=== PATIENT | female | born 1990 | race Caucasian/White ===

== ENCOUNTER 2016-11-04 14:34 | Emergency (ER) | payer OTHER ==
[2016-11-04 15:01] VITALS: BP 113/60; PULSE 99; TEMP 99.2; BMI 52.0
--- NOTE | 2016-11-04 15:15 | PDOC ---
History of Present Illness - History of Present Illness Initial Comments: 11/04/16 15:14 Patient is a 26 year old female presenting with RUQ pain for 4 months that started 8 months after a fabricio 11/04/16 15:29 <Clive Pillai - Last Filed: 11/04/16 19:16> <Perla Matthews - Last Filed: 11/04/16 19:54> - General Chief Complaint: Pain Stated Complaint: RIGHT SIDE PAIN Time Seen by Provider: 11/04/16 15:09 Past History - Surgical History Cholecystectomy: Yes - Psycho/Social/Smoking Cessation Hx Anxiety: No Suicidal Ideation: No Smoking History: Never smoked Have you smoked in the past 12 months: No Information on smoking cessation initiated: No Hx Alcohol Use: No Drug/Substance Use Hx: No Substance Use Type: None <Clive Pillai - Last Filed: 11/04/16 19:16> <Perla Matthews - Last Filed: 11/04/16 19:54> - Past Medical History Allergies/Adverse Reactions: Allergies Allergy/AdvReac Type Severity Reaction Status Date / Time No Known Allergies Allergy Verified 11/04/16 14:56 Home Medications: Ambulatory Orders NK [No Known Home Medication] 11/04/16 *Physical Exam - Vital Signs Last Vital Signs Temp Pulse Resp BP Pulse Ox 99.2 F 99 H 18 113/60 100 11/04/16 14:54 11/04/16 14:54 11/04/16 14:54 11/04/16 14:54 11/04/16 14:54 <Clive Pillai - Last Filed: 11/04/16 19:16> - Vital Signs Last Vital Signs Temp Pulse Resp BP Pulse Ox 99.2 F 99 H 18 113/60 100 11/04/16 14:54 11/04/16 14:54 11/04/16 14:54 11/04/16 14:54 11/04/16 14:54 <Perla Matthews - Last Filed: 11/04/16 19:54> ED Treatment Course - LABORATORY CBC & Chemistry Diagram: 11/04/16 16:09 11/04/16 16:09 <Clive Pillai - Last Filed: 11/04/16 19:16> - LABORATORY CBC & Chemistry Diagram: 11/04/16 16:09 11/04/16 16:09 - ADDITIONAL ORDERS Additional order review: Laboratory Results 11/04/16 11/04/16 16:09 16:02 Sodium 138 Potassium 4.4 Chloride 105 Carbon Dioxide 27 Anion Gap 6 L BUN 10 D Creatinine 0.5 L Creat Clearance w eGFR > 60 Random Glucose 86 Calcium 9.2 Total Bilirubin 0.3 D AST 26 D ALT 35 D Alkaline Phosphatase 73 D Total Protein 7.8 D Albumin 4.0 D Urine Color Yellow Urine Appearance Clear Urine pH 5.0 Urine Protein Negative Urine Glucose (UA) Negative Urine Ketones Negative Urine Blood 1+ H Urine Nitrite Negative Urine Bilirubin Negative Urine Urobilinogen Negative Ur Leukocyte Esterase Negative Urine RBC 11 Urine WBC <1 Urine Mucus Rare Urine HCG, Qual Negative 11/04/16 16:09 RBC 5.24 H D MCV 77.7 L MCHC 32.5 RDW 14.5 MPV 8.1 Neutrophils % 36.1 L D Lymphocytes % 45.0 H Monocytes % 14.2 H D Eosinophils % 3.9 D Basophils % 0.8 - RADIOLOGY Radiology Studies Ordered: Category Date Time Status ABDOMEN US -LIMITED [US] Stat Ultrasound 11/04/16 17:53 Completed KIDNEY / RENAL US [US] Stat Ultrasound 11/04/16 17:53 Completed <Perla Matthews - Last Filed: 11/04/16 19:54> Medical Decision Making - Medical Decision Making 11/04/16 15:15 Patient presenting in ED with 4 month RUQ abdominal pain following Ddx: strictures, gall stone, infection, 11/04/16 15:54 [address] while waiting for examination room 11/04/16 18:30 Dr. Matthews took over management abdominal US Renal pelvic US 11/04/16 18:31 11/04/16 18:38 CBC WBC 4.2 K/mm3 (4.0-10.0) D 11/04/16 16:09 RBC 5.24 M/mm3 (3.60-5.2) H D 11/04/16 16:09 Hgb 13.2 GM/dL (10.7-15.3) D 11/04/16 16:09 Hct 40.7 % (32.4-45.2) D 11/04/16 16:09 MCV 77.7 fl (80-96) L 11/04/16 16:09 MCH 25.2 pg (25.7-33.7) L 11/04/16 16:09 MCHC 32.5 g/dl (32.0-36.0) 11/04/16 16:09 RDW 14.5 % (11.6-15.6) 11/04/16 16:09 Plt Count 287 K/MM3 (134-434) 11/04/16 16:09 MPV 8.1 fl (7.5-11.1) 11/04/16 16:09 Neutrophils % 36.1 % (42.8-82.8) L D 11/04/16 16:09 Lymphocytes % 45.0 % (8-40) H 11/04/16 16:09 Monocytes % 14.2 % (3.8-10.2) H D 11/04/16 16:09 Eosinophils % 3.9 % (0-4.5) D 11/04/16 16:09 Basophils % 0.8 % (0-2.0) 11/04/16 16:09 CBC reviewed and wnl UA not suggestive of infection, no blood 11/04/16 19:15 US showed no acute pathology Gave reports and lab results to patient Dr. Matthews took over management <Clive Pillai - Last Filed: 11/04/16 19:16> *DC/Admit/Observation/Transfer - Attestations Physician Attestion: 11/04/16 19:16 I, Dr. Clive Pillai, attest that this document has been prepared under my direction and personally reviewed by me in its entirety. I further attest, that it accurately reflects all work, treatment, procedures and medical decision -making performed by me. <Clive Pillai - Last Filed: 11/04/16 19:16> <Perla Matthews - Last Filed: 11/04/16 19:54> Diagnosis at time of Disposition: Flank pain, Chronic epigastric pain - Discharge Dispostion Disposition: HOME Condition at time of disposition: Stable - Patient Instructions Printed Discharge Instructions: DI for Flank Pain, DI for Epigastric Pain Additional Instructions: please take ibuprofen or motrin for pain return for any worsening
[2016-11-04 16:22] LABS: BASOPHIL 0.8 % (0-2.0); EOSINOPHIL 3.9 % (0-4.5); MCH 25.2 pg (25.7-33.7); MCHC 32.5 g/dl (32.0-36.0); MEAN CELL VOLUME 77.7 fl (80-96); MEAN PLT VOLUME 8.1 fl (7.5-11.1); NEUTROPHILS 36.1 % (42.8-82.8); PLATELET COUNT 287 K/MM3 (134-434); RDW 14.5 % (11.6-15.6); WHITE BLOOD COUNT 4.2 K/mm3 (4.0-10.0)
[2016-11-04 17:01] LABS: URINE APPEARANCE CLEAR; URINE BILIRUBIN NEGATIVE (NEGATIVE); URINE COLOR YELLOW; URINE GLUCOSE (UA) NEGATIVE (NEGATIVE); URINE KETONE NEGATIVE (NEGATIVE); URINE LEUK ESTERASE NEGATIVE (NEGATIVE); URINE NITRITE NEGATIVE (NEGATIVE); URINE PROTEIN NEGATIVE (NEGATIVE); URINE UROBILINOGEN NEGATIVE E.U./dl (0.2-1.0)
[2016-11-04 17:10] LABS: URINE BLOOD 1+ (NEGATIVE)
[2016-11-04 17:12] LABS: URINE MUCUS RARE; URINE RBC 11 /hpf (0-3); URINE WBC <1 /hpf (3-5)
[2016-11-04 17:16] LABS: ALK PHOS 73 U/L (45-117); ANION GAP 6 (8-16); BILIRUBIN,TOTAL 0.3 mg/dL (0.2-1.0); CALCIUM 9.2 mg/dL (8.5-10.1); CO2 27 mmol/L (21-32); CREATININE 0.5 mg/dL (0.55-1.02); GLUCOSE,RANDOM 86 mg/dL (74-106); SGOT/AST 26 U/L (15-37); SGPT/ALT 35 U/L (12-78); TOT PROT 7.8 g/dl (6.4-8.2)
--- NOTE | 2016-11-04 19:55 | PDOC ---
Attending Attestation - Resident Resident Name: Clive Pillai - HPI HPI: 11/05/16 03:10 wnwd 26 yo female has c/o intermittent epigastric pain for 4 months. She is currently visiting family here(she lives in [place]). She is not actively vomiting or having fever or chills - Physicial Exam PE: 11/05/16 03:11 heent normocephalic,atraumatic neck supple lungs cta b/l cvr [id number] abd no rebound,no guarding,+bs ext from,no deformities skin no rashes neuro axox3,ambulatory - Medical Decision Making 11/05/16 03:13 abd and renal US essentially negative. All labs wnl. neg imp- GERD
== END 2016-11-04 19:57 | disposition home or self-care (01) ==
LOC: JER 14:34 → SUPCPDRO 14:34 → JER 19:57
DX: R10.13 Epigastric pain (principal); K21.9 Gastro-esophageal reflux disease without esophagitis
CPT/HCPCS: 36415; 76705-TC; 76775-TC; 80053; 81003; 81015; 84703; 85025; 99282-25